=== PATIENT | female | born 2005 | race Hispanic/Latino ===

== ENCOUNTER 2023-04-27 20:00 | Emergency (ER) | payer OTHER, SELFPAY ==
[2023-04-27 20:10] VITALS: BP 138/71; PULSE 79; RESP 19; TEMP 37.1; O2SAT 100; BMI 26.6
[2023-04-27 20:19] VITALS: PULSE 81; O2SAT 99
--- NOTE | 2023-04-27 20:22 | ED_ITS ---
HPI - Nausea/Vomiting/Diarrhea General Chief complaint: Nausea/Vomiting/Diarrhea Stated complaint: 6wk preg, no fluids T-3, dizzy Time Seen by Provider: 04/27/23 20:03 Source: patient Mode of arrival: Family Vehicle History of Present Illness HPI Narrative: Patient is a 17-year-old female. at approximately 5-6 weeks EGA. Coming to the emergency department today because of nausea and vomiting. She denies any vaginal bleeding. No abdominal pain. No loss of fluid. No diarrhea. She is no nausea medication at home. She is taking vitamins. Yesterday she was seen at an outside facility for vaginal bleeding. She is not having any vaginal bleeding today. She states that they put in an IV but did not give her any fluids. They did not send her home with any nausea medication. Related Data Previous Rx's Medication Instructions Recorded ondansetron 4 mg disintegrating 4 mg PO Q6H PRN nausea and 04/27/23 tablet vomiting #14 tabs Allergies Allergy/AdvReac Type Severity Reaction Status Date / Time No Known Drug Allergies Allergy Verified 04/27/23 20:17 Review of Systems Constitutional Constitutional: Reports system reviewed and no additional complaints, except as documented Gastrointestinal Gastrointestinal: Reports system reviewed and no additional complaints, except as documented Genitourinary Genitourinary: Reports system reviewed and no additional complaints, except as documented Integumentary/Breasts Skin/Breast: Reports system reviewed and no additional complaints, except as documented Patient History Social History Smoking Status: Never smoker Smoking Status: Never smoker alcohol intake frequency: 0-2 drinks per day Substance Use Type: does not use Exam Initial Vital Signs Initial Vital Signs: Vital Signs Temperature 98.7 F 04/27/23 20:10 Pulse Rate 79 04/27/23 20:10 Respiratory Rate 19 04/27/23 20:10 Blood Pressure 138/71 04/27/23 20:10 Pulse Oximetry 100 04/27/23 20:10 Oxygen Delivery Method Room Air 04/27/23 20:10 Const General: cooperative and healthy appearing HENMT Head: normal to inspection and normocephalic Resp Effort & Inspection: normal respiratory effort Cardio Rate: regular rate GI Inspection: normal to inspection Skin General: no rashes or lesions noted Neuro General: patient alert, patient awake and moves all extremities Course Orders Ordered: Discontinued Medications Sodium Chloride (Normal Saline 0.9%) 1,000 mls @ 1,000 mls/hr IV BOLUS ONE Stop: 04/27/23 21:11 Last Infusion: 04/27/23 21:20 Dose: 0 mls/hr Documented By: Admin: 04/27/23 20:32 Dose: 1,000 mls/hr Documented By: CLINTON Ondansetron HCl (Ondansetron 4 Mg/2 Ml Inj) 4 mg IV NOW ONE Stop: 04/27/23 20:24 Last Admin: 04/27/23 20:32 Dose: 4 mg Documented By: CLINTON Ondansetron HCl (Ondansetron 4 Mg Odt Prepack) 1 bottle MISC SEEINSTR ONE Stop: 04/27/23 22:04 Pantoprazole Sodium (Pantoprazole 40 Mg Vial) 40 mg IV NOW ONE Stop: 04/27/23 21:12 Last Admin: 04/27/23 21:20 Dose: 40 mg Documented By: CLINTON Vital Signs Vital signs: Vital Signs - 8 hr 04/27/23 20:10 04/27/23 20:19 04/27/23 20:30 Temperature 98.7 F Pulse Rate 79 81 74 Respiratory Rate 19 Blood Pressure 138/71 Pulse Oximetry 100 99 99 Oxygen Delivery Method Room Air 04/27/23 21:00 04/27/23 21:30 04/27/23 21:52 Temperature Pulse Rate 95 H 92 H 81 Respiratory Rate Blood Pressure Pulse Oximetry 98 99 100 Oxygen Delivery Method 04/27/23 21:52 Temperature 97.8 F Pulse Rate Respiratory Rate 16 Blood Pressure 121/55 L Pulse Oximetry Oxygen Delivery Method MDM - Nausea/Vomiting/Diarrhea Medical Records Attestation: I reviewed the patient's medical records. Lab Data Lab results narrative: Patient had blood work and an ultrasound done yesterday. We were able to obtain those records. She did have a bedside ultrasound which did show a intrauterine gestational sac and a fetus consistent with a intrauterine . She is not having any vaginal bleeding today. After medications here in the ER she states she does feel much better. She is able to tolerate oral intake. I feel that we can hold on any blood work or repeat ultrasound today. Will send home with a prescription for nausea medicine. She is already taking vitamins. She already has a follow-up appointment scheduled with artifacts conservator. She was given return precautions. She expressed understanding and agreement. Discharge Plan Departure Patient Disposition: Home Clinical Impression: Nausea and vomiting during Instructions: Nausea of (Alternative Therapy) Activity Restrictions/Additional Instructions: I do recommend that you continue with your vitamins. Also increase your fluid intake by drinking small amounts more frequently. I also recommend a bland diet. Keep all of your scheduled medical appointments. Return to the emergency department for new or worsening symptoms. Prescriptions: New ondansetron 4 mg tablet,disintegrating 4 mg PO Q6H PRN (Reason: nausea and vomiting) Qty: 14 0RF Stand Alone Forms: Patient Portal/API
[2023-04-27 20:30] VITALS: PULSE 74; O2SAT 99
[2023-04-27] MEDS: ONDANSETRON 4 MG/2 ML INJ IV (20:32)
[2023-04-27] MEDS: SODIUM CHLORIDE 0.9% 1,000 ML 1000 ML IV (20:32)
[2023-04-27 21:00] VITALS: PULSE 95; O2SAT 98
[2023-04-27] MEDS: PANTOPRAZOLE 40 MG VIAL IV (21:20)
[2023-04-27 21:30] VITALS: PULSE 92; O2SAT 99
[2023-04-27 21:52] VITALS: BP 121/55; PULSE 81; RESP 16; TEMP 36.6; O2SAT 100
[2023-04-27] MEDS: ONDANSETRON 4 MG ODT PREPACK 1 BOTTLE MISC (22:17)
== END 2023-04-27 22:19 | disposition home or self-care (01) ==
PROVIDERS: Emergency Provider Emergency Medicine
DX: O21.9 Vomiting of pregnancy, unspecified (principal); Z3A.01 Less than 8 weeks gestation of pregnancy
CPT/HCPCS: 96361; 96374; 96375; 99283; 99284; C9113; J2405

== ENCOUNTER 2023-05-10 20:53 | Emergency (ER) | payer OTHER, MEDICAID, SELFPAY ==
[2023-05-10 20:58] VITALS: BP 120/87; PULSE 65; RESP 18; TEMP 36.3; O2SAT 100; BMI 25.2
[2023-05-11 00:03] LABS: Bacteria Urine Occasional (0-1); Calcium Oxalate Crystals Urine Moderate; RBC Urine 10-30/HPF (0-5/HPF); Squamous Epithelial Cell Urine 10-30 /HPF (0-5/HPF); WBC Urine 0-1/HPF (0-5/HPF)
[2023-05-11 00:04] LABS: Culture Indicated Urine Cult Not Indicated; Mucus Urine 2+ (Negative)
== END 2023-05-11 00:51 | disposition left against medical advice (07) ==
PROVIDERS: Emergency Provider Emergency Medicine
DX: O26.91 Pregnancy related conditions, unspecified, first trimester (principal); R10.30 Lower abdominal pain, unspecified; Z3A.01 Less than 8 weeks gestation of pregnancy
CPT/HCPCS: 81003; 81015; 81025; 99282

== ENCOUNTER 2023-05-11 05:52 | Emergency (ER) | payer OTHER, MEDICAID, SELFPAY ==
[2023-05-11 06:00] VITALS: BP 115/58; PULSE 86; RESP 18; TEMP 36.1; O2SAT 100; BMI 25.2
--- NOTE | 2023-05-11 06:12 | ED.GENADULT ---
HPI - General Adult <Corie Ferro MD - Last Filed: 05/20/23 18:23> General Chief complaint: Urogenital-Female Stated complaint: 8 weeks preg/cramping/cant sleep Time Seen by Provider: 05/11/23 06:12 Source: patient Mode of arrival: Wheelchair History of Present Illness HPI narrative: 17-year-old at approximately 8 weeks presents with dysuria. Patient was seen at [facility] ER on April 14 complaining of cramping and vaginal bleeding was found to be with a pelvic ultrasound showing a 2 mm cystic focus within the endometrial canal probably Re representing a small early gestation. She was seen again April 26 with vomiting of early , dehydration with mild dysuria and unremarkable urinalysis at that time. She was seen in our emergency department on April 27 with nausea and vomiting. She was in our emergency department approximately 8 hours ago, urine at that time showed blood epithelial cells and crystals but did not suggest acute urinary tract infection. She left prior to being seen in returns early this morning with continued complaints of dysuria. She notes that she has significant urgency and frequency minimal urine output, still nauseated and is now complaining of some cramping. She appears quite fatigued and notes almost no sleep secondary to the urgency and frequency. No fevers, flank pain, constipation or diarrhea. Related Data Previous Rx's Medication Instructions Recorded ondansetron 4 mg disintegrating 4 mg PO Q6H PRN nausea and 04/27/23 tablet vomiting #14 tabs ondansetron 4 mg disintegrating 4 mg PO Q8H PRN nausea and 05/11/23 tablet vomiting #10 tabs Allergies Allergy/AdvReac Type Severity Reaction Status Date / Time No Known Drug Allergies Allergy Verified 04/27/23 20:17 Review of Systems <Corie Ferro MD - Last Filed: 05/20/23 18:23> Review of Systems Narrative: Pertinent positive and negative findings as per HPI Patient History <Corie Ferro MD - Last Filed: 05/20/23 18:23> Social History Smoking Status: Never smoker Smoking Status: Never smoker alcohol intake frequency: 0-2 drinks per day Substance Use Type: does not use Exam <Corie Ferro MD - Last Filed: 05/20/23 18:23> Initial Vital Signs Initial Vital Signs: Vital Signs Temperature 97 F L 05/11/23 06:00 Pulse Rate 86 05/11/23 06:00 Respiratory Rate 18 05/11/23 06:00 Blood Pressure 115/58 L 05/11/23 06:00 Pulse Oximetry 100 05/11/23 06:00 Oxygen Delivery Method Room Air 05/11/23 06:00 General: Fatigued appears uncomfortable but still able to give a complete and coherent history. Well-nourished well-developed HEENT: Dry mucous membranes, normal sclera with reactive pupils, Respiratory: Lungs are clear to auscultation, no wheezing no rales no rhonchi. Full and symmetrical air movement Cardiac: Regular rate and rhythm no murmurs no bruits Abdomen: Soft, nontender, no rebound or guarding, no significant pelvic tenderness with palpation good bowel tones, no flank pain Skin: Warm and dry, no rashes Neurologic: Grossly neurologically intact with no obvious asymmetries or abnormalities Psych: Cooperative, appropriate insight and affect <Skylar Gutierres DO - Last Filed: 05/11/23 13:18> Initial Vital Signs Initial Vital Signs: Vital Signs Temperature 97 F L 05/11/23 06:00 Pulse Rate 86 05/11/23 06:00 Respiratory Rate 18 05/11/23 06:00 Blood Pressure 115/58 L 05/11/23 06:00 Pulse Oximetry 100 05/11/23 06:00 Oxygen Delivery Method Room Air 05/11/23 06:00 Course <Corie Ferro MD - Last Filed: 05/20/23 18:23> Orders Ordered: Discontinued Medications Sodium Chloride (Normal Saline 0.9%) 1,000 mls @ 1,000 mls/hr IV BOLUS ONE Stop: 05/11/23 07:23 Last Infusion: 05/11/23 07:50 Dose: 0 mls/hr Documented By: Admin: 05/11/23 06:42 Dose: 1,000 mls/hr Documented By: CHRISTOPHER Sodium Chloride (Normal Saline 0.9%) 1,000 mls @ 1,000 mls/hr IV BOLUS ONE Stop: 05/11/23 07:23 Last Infusion: 05/11/23 08:35 Dose: 0 mls/hr Documented By: Admin: 05/11/23 07:52 Dose: 1,000 mls/hr Documented By: RB Ondansetron HCl (Ondansetron 4 Mg/2 Ml Inj) 4 mg IV NOW ONE Stop: 05/11/23 06:25 Last Admin: 05/11/23 06:44 Dose: 4 mg Documented By: AP Vital Signs Vital signs: Vital Signs - 8 hr 05/11/23 06:00 05/11/23 07:47 05/11/23 07:47 Temperature 97 F L Pulse Rate 86 88 Respiratory Rate 18 Blood Pressure 115/58 L 96/52 L Pulse Oximetry 100 99 Oxygen Delivery Method Room Air <Skylar Gutierres DO - Last Filed: 05/11/23 13:18> Orders Ordered: Discontinued Medications Sodium Chloride (Normal Saline 0.9%) 1,000 mls @ 1,000 mls/hr IV BOLUS ONE Stop: 05/11/23 07:23 Last Infusion: 05/11/23 07:50 Dose: 0 mls/hr Documented By: Admin: 05/11/23 06:42 Dose: 1,000 mls/hr Documented By: AP Sodium Chloride (Normal Saline 0.9%) 1,000 mls @ 1,000 mls/hr IV BOLUS ONE Stop: 05/11/23 07:23 Last Infusion: 05/11/23 08:35 Dose: 0 mls/hr Documented By: Admin: 05/11/23 07:52 Dose: 1,000 mls/hr Documented By: RB Ondansetron HCl (Ondansetron 4 Mg/2 Ml Inj) 4 mg IV NOW ONE Stop: 05/11/23 06:25 Last Admin: 05/11/23 06:44 Dose: 4 mg Documented By: AP Vital Signs Vital signs: Vital Signs - 8 hr 05/11/23 06:00 05/11/23 07:47 05/11/23 07:47 Temperature 97 F L Pulse Rate 86 88 Respiratory Rate 18 Blood Pressure 115/58 L 96/52 L Pulse Oximetry 100 99 Oxygen Delivery Method Room Air Medical Decision Making <Corie Ferro MD - Last Filed: 05/20/23 18:23> Lab Data 05/11/23 06:30 05/11/23 06:30 Labs: Lab Results 05/11/23 05/11/23 05/11/23 Range/Units 06:30 06:30 06:50 WBC 9.6 (4.5-11.0) X10^3/uL RBC 4.25 (4.0-5.2) X10^6/uL Hgb 13.0 (12.0-16.0) g/dL Hct 37.3 (36-46) % MCV 87.8 (80-100) fL MCH 30.5 (26-34) PG MCHC 34.8 (30-36) % RDW 13.5 (11.6-14.8) % Plt Count 294 (150-400) X10^3/uL Neut % (Auto) 64.7 (50-75) % Lymph % (Auto) 28.2 (25-40) % [place] % (Auto) 6.1 (3-14) % Eos % (Auto) 0.6 L (2-4) % Baso % (Auto) 0.4 (0-2) % Neut # (Auto) 6200 (9248-8400) /uL Lymph # (Auto) 2700 (3132-4451) /uL [place] # (Auto) 600 (0-900) /uL Eos # (Auto) 100 (0-450) /uL Baso # (Auto) 0 (0-100) /uL Sodium 136 L (137-145) mmol/L Potassium 3.7 (3.4-5.1) mmol/L Chloride 106 (98-107) mmol/L Carbon Dioxide 21 L (22-32) mmol/L BUN 6 L (7-17) mg/dL Creatinine 0.39 L (0.52-1.04) mg/dL Estimated GFR > 60 (>60) mL/min BUN/Creatinine Ratio 15.4 (6-22) Glucose 84 (70-100) mg/dL Calcium 9.2 (8.4-10.2) mg/dL Total Bilirubin 0.3 (0.2-1.3) mg/dL AST 22 (14-36) IU/L ALT 16 (<35) IU/L Alkaline Phosphatase 45 (38-126) U/L Total Protein 6.8 (6.3-8.2) g/dL Albumin 4.0 (3.5-5.0) g/dL Globulin 2.8 (1.7-4.1) g/dL Albumin/Globulin Ratio 1.4 (1.0-2.8) Urine Color Yellow Urine Appearance Clear Urine pH 6.0 (4.5-8.0) Ur Specific [place] 1.015 (1.000-1.035) Urine Protein Negative (Negative) Urine Glucose (UA) Negative (Negative) g/dL Urine Ketones Trace H (NEGATIVE) Urine Occult Blood 1+ H (Negative) Urine Nitrate Negative (Negative) Urine Bilirubin Negative (NEGATIVE) Urine Urobilinogen 0.2 (0.2) E.U./dL Ur Leukocyte Esterase Negative (NEGATIVE) Urine RBC 1-5/hpf D (0-5/HPF) Urine WBC 1-5/hpf (0-5/HPF) Ur Squamous Epith Cells 5-10 /hpf H (0-5/HPF) Urine Bacteria Occasional (0-1) (None) Urine Mucus 1+ H (Negative) Ur Culture Indicated? Cult not indicated Micro UA Comment MDM Narrative Medical decision making narrative: CC: 8 weeks with dysuria, cramping, nausea and vomiting. Acute uncertain prognosis Complicating co-morbidities: Persistent nausea early Data collected from: patient, partner Medical records reviewed: Notes from April 14 at [facility] with ultrasound report and April 26 at [facility] with evaluation for dehydration are reviewed Differential considered: Urinary tract infection, dehydration causing urinary irritation, nausea and vomiting , complication Exam documented above, pertinent findings include: Fatigued, mild subjective cramping without any tenderness to deep palpation in the abdomen or lower pelvic area. No flank pain Lab Test results independently reviewed as above. Pertinent findings: Urine dip last night shows 10-30 red blood cells 10-30 squamous cells moderate calcium and mucus no bacteria and no white blood cells. Culture was not indicated. Independently reviewed EKG as above Imaging studies independently reviewed: Consultations: Treatments: Re-evaluations: Discussion: <Skylar Gutierres, DO - Last Filed: 05/11/23 13:18> Lab Data Labs: Lab Results 05/11/23 05/11/23 05/11/23 Range/Units 06:30 06:30 06:50 WBC 9.6 (4.5-11.0) X10^3/uL RBC 4.25 (4.0-5.2) X10^6/uL Hgb 13.0 (12.0-16.0) g/dL Hct 37.3 (36-46) % MCV 87.8 (80-100) fL MCH 30.5 (26-34) PG MCHC 34.8 (30-36) % RDW 13.5 (11.6-14.8) % Plt Count 294 (150-400) X10^3/uL Neut % (Auto) 64.7 (50-75) % Lymph % (Auto) 28.2 (25-40) % [place] % (Auto) 6.1 (3-14) % Eos % (Auto) 0.6 L (2-4) % Baso % (Auto) 0.4 (0-2) % Neut # (Auto) 6200 (9732-8633) /uL Lymph # (Auto) 2700 (0121-3829) /uL [place] # (Auto) 600 (0-900) /uL Eos # (Auto) 100 (0-450) /uL Baso # (Auto) 0 (0-100) /uL Sodium 136 L (137-145) mmol/L Potassium 3.7 (3.4-5.1) mmol/L Chloride 106 (98-107) mmol/L Carbon Dioxide 21 L (22-32) mmol/L BUN 6 L (7-17) mg/dL Creatinine 0.39 L (0.52-1.04) mg/dL Estimated GFR > 60 (>60) mL/min BUN/Creatinine Ratio 15.4 (6-22) Glucose 84 (70-100) mg/dL Calcium 9.2 (8.4-10.2) mg/dL Total Bilirubin 0.3 (0.2-1.3) mg/dL AST 22 (14-36) IU/L ALT 16 (<35) IU/L Alkaline Phosphatase 45 (38-126) U/L Total Protein 6.8 (6.3-8.2) g/dL Albumin 4.0 (3.5-5.0) g/dL Globulin 2.8 (1.7-4.1) g/dL Albumin/Globulin Ratio 1.4 (1.0-2.8) Urine Color Yellow Urine Appearance Clear Urine pH 6.0 (4.5-8.0) Ur Specific [place] 1.015 (1.000-1.035) Urine Protein Negative (Negative) Urine Glucose (UA) Negative (Negative) g/dL Urine Ketones Trace H (NEGATIVE) Urine Occult Blood 1+ H (Negative) Urine Nitrate Negative (Negative) Urine Bilirubin Negative (NEGATIVE) Urine Urobilinogen 0.2 (0.2) E.U./dL Ur Leukocyte Esterase Negative (NEGATIVE) Urine RBC 1-5/hpf D (0-5/HPF) Urine WBC 1-5/hpf (0-5/HPF) Ur Squamous Epith Cells 5-10 /hpf H (0-5/HPF) Urine Bacteria Occasional (0-1) (None) Urine Mucus 1+ H (Negative) Ur Culture Indicated? Cult not indicated Micro UA Comment MDM Narrative Medical decision making narrative: CC: 8 weeks with dysuria, cramping, nausea and vomiting. Acute uncertain prognosis Complicating co-morbidities: Persistent nausea early Data collected from: patient, partner Medical records reviewed: Notes from April 14 at [facility] with ultrasound report and April 26 at [facility] with evaluation for dehydration are reviewed Differential considered: Urinary tract infection, dehydration causing urinary irritation, nausea and vomiting , complication Exam documented above, pertinent findings include: Fatigued, mild subjective cramping without any tenderness to deep palpation in the abdomen or lower pelvic area. No flank pain Lab Test results independently reviewed as above. Pertinent findings: Urine dip last night shows 10-30 red blood cells 10-30 squamous cells moderate calcium and mucus no bacteria and no white blood cells. Culture was not indicated. Independently reviewed EKG as above Imaging studies independently reviewed: Consultations: Treatments: Re-evaluations: Discussion: Patient signed out to me by Dr. Ferro seen and evaluated patient myself. Overall feeling better ambulatory to the restroom. No evidence of UTI today. She is followed by Kate Newsome for OB care. She is tolerating fluids will give her more Zofran. She is an appointment with OB this week. We also discussed other options for nausea such as gianni and B6. Discharge Plan Departure Patient Disposition: Home Clinical Impression: Nausea and vomiting during Instructions: Nausea of (Alternative Therapy) Activity Restrictions/Additional Instructions: *You have been diagnosed with nausea vomiting in *What to do: Please stay hydrated as best you can try to eat small meals frequently preferably with high-protein *Continue to take medications as directed B6 once daily Zofran 4 mg every 8 hours if needed for nausea vomiting--> Derrick in [place] *Follow up with your primary care provider in 2-3 days or call [phone] Kate Newsome this week as scheduled *Return to ER if you should have persistent vomiting increased pain cramping or bleeding or any new, worsening or concerning symptoms Prescriptions: New ondansetron 4 mg tablet,disintegrating 4 mg PO Q8H PRN (Reason: nausea and vomiting) Qty: 10 0RF No Action ondansetron 4 mg tablet,disintegrating 4 mg PO Q6H PRN (Reason: nausea and vomiting) Qty: 14 0RF Referrals: Kate Leigh CNM [Advanced Clinical Nutritionist] - Stand Alone Forms: Patient Portal/API ED Sign-out <Corie Ferro MD - Last Filed: 05/20/23 18:23> Cosign ED Attending Cosmeredithature Attestation: I was immediately available in the department for consultation throughout this patient's visit. Corie Ferro MD
[2023-05-11] MEDS: SODIUM CHLORIDE 0.9% 1,000 ML 1000 ML IV ×2 (06:42→07:52)
[2023-05-11] MEDS: ONDANSETRON 4 MG/2 ML INJ IV (06:44)
[2023-05-11 06:50] LABS: Add Manual Diff / Slide Review NO; Basophils Absolute Auto 0 /uL (0-100); Basophils Percent Auto 0.4 % (0-2); Eosinophils Absolute Auto 100 /uL (0-450); Eosinophils Percent Auto 0.6 % (2-4); Hematocrit 37.3 % (36-46); Lymphocytes Absolute Auto 2700 /uL (1100-4500); Lymphocytes Percent Auto 28.2 % (25-40); Mean Corpuscular HGB Conc 34.8 % (30-36); Mean Corpuscular Hemoglobin 30.5 PG (26-34); Mean Corpuscular Volume 87.8 fL (80-100); Monocytes Absolute Auto 600 /uL (0-900); Monocytes Percent Auto 6.1 % (3-14); Neutrophils Absolute Auto 6200 /uL (1500-7000); Neutrophils Percent Auto 64.7 % (50-75); Platelet Count 294 X10^3/uL (150-400); Red Blood Cell Count 4.25 X10^6/uL (4.0-5.2); Red Cell Distribution Width 13.5 % (11.6-14.8); White Blood Cell Count 9.6 X10^3/uL (4.5-11.0)
[2023-05-11 06:58] LABS: Appearance Urine UA CLEAR; Bilirubin Urine UA NEGATIVE (NEGATIVE); Color Urine UA YELLOW; Glucose Urine UA NEGATIVE (Negative); Ketones Urine UA TRACE (NEGATIVE); Leukocyte Esterase Urine UA NEGATIVE (NEGATIVE); Nitrite Urine UA NEGATIVE (Negative); Occult Blood Urine UA 1+ (Negative); Protein Urine UA NEGATIVE (Negative); Specific Gravity Urine UA 1.015 (1.000-1.035); Urobilinogen Urine UA 0.2 E.U./dL (0.2)
[2023-05-11 07:00] LABS: Alanine Aminotransferase 16 IU/L (<35); Albumin Globulin Ratio 1.4 (1.0-2.8); Alkaline Phosphatase 45 U/L (38-126); Aspartate Aminotransferase 22 IU/L (14-36); BUN Creatinine Ratio 15.4 (6-22); Bilirubin Total 0.3 mg/dL (0.2-1.3); Blood Urea Nitrogen 6 mg/dL (7-17); Calcium 9.2 mg/dL (8.4-10.2); Carbon Dioxide 21 mmol/L (22-32); Chloride 106 mmol/L (98-107); Estimated Glomerular Filt Rate > 60 mL/min (>60); Globulin 2.8 g/dL (1.7-4.1); Glucose 84 mg/dL (70-100); HEMOLYSIS < 15 (0-50); Potassium 3.7 mmol/L (3.4-5.1); Sodium 136 mmol/L (137-145); Total Protein 6.8 g/dL (6.3-8.2)
[2023-05-11 07:11] LABS: Bacteria Urine Occasional (0-1); Culture Indicated Urine Cult Not Indicated; Mucus Urine 1+ (Negative); RBC Urine 1-5/HPF (0-5/HPF); Squamous Epithelial Cell Urine 5-10 /HPF (0-5/HPF); WBC Urine 1-5/HPF (0-5/HPF)
[2023-05-11 07:47] VITALS: BP 96/52; PULSE 88; O2SAT 99
== END 2023-05-11 08:37 | disposition home or self-care (01) ==
PROVIDERS: Emergency Medicine; Emergency Provider Emergency Medicine
DX: O21.9 Vomiting of pregnancy, unspecified (principal); Z3A.08 8 weeks gestation of pregnancy
CPT/HCPCS: 80053; 81001; 85025; 96361; 96374; 99283; 99284; J2405

== ENCOUNTER 2023-06-23 21:49 | Emergency (ER) | payer OTHER, MEDICAID, SELFPAY ==
[2023-06-23 21:58] VITALS: BP 111/65; PULSE 109; RESP 16; TEMP 37; O2SAT 99; BMI 27.0
--- NOTE | 2023-06-23 22:32 | ED.DENTAL ---
HPI - Dental/Oral General Chief complaint: Dental/Oral Stated complaint: Tooth Ache Time Seen by Provider: 06/23/23 22:28 Source: patient Mode of arrival: Ambulatory History of Present Illness HPI Narrative: Patient healthy 17-year-old female currently 14 weeks presenting today with dental pain for the last 2 days. She reports low-grade fever up to 100. Is left lower jaw. She reports pain going up to her ear no difficulty in swallowing. She denies any abdominal pain nausea vomiting or other symptoms. She denies any painful frequent urination. Really complaining of dental pain. Related Data Previous Rx's Medication Instructions Recorded ondansetron 4 mg disintegrating 4 mg PO Q6H PRN nausea and 04/27/23 tablet vomiting #14 tabs ondansetron 4 mg disintegrating 4 mg PO Q8H PRN nausea and 05/11/23 tablet vomiting #10 tabs amoxicillin 500 mg capsule 500 mg PO BID #14 caps 06/23/23 Allergies Allergy/AdvReac Type Severity Reaction Status Date / Time No Known Drug Allergies Allergy Verified 04/27/23 20:17 Review of Systems Review of Systems ROS Unobtainable: All systems reviewed & are unremarkable except as noted in HPI and below Patient History Social History Smoking Status: Never smoker Smoking Status: Never smoker alcohol intake frequency: 0-2 drinks per day Substance Use Type: does not use Exam Initial Vital Signs Initial Vital Signs: Vital Signs Temperature 98.6 F 06/23/23 21:58 Pulse Rate 109 H 06/23/23 21:58 Respiratory Rate 16 06/23/23 21:58 Blood Pressure 111/65 06/23/23 21:58 Pulse Oximetry 99 06/23/23 21:58 Oxygen Delivery Method Room Air 06/23/23 21:58 GENERAL: Well-appearing, well-nourished and in no acute distress. MOUTH: Pain left lower molar area no dental abscess no significant dental caries actually pretty good dentition no swelling no facial erythema CARDIOVASCULAR: peripheral pulses in tact, cap refill <2 sec RESPIRATORY: No respiratory distress, speaks in full sentences without difficulty EXTREMITIES: Normal range of motion, no clubbing or edema. Neurovascularly intact NEUROLOGICAL: Cranial nerves II through XII grossly intact. Normal gait and speech. SKIN: Warm, dry, no petechiae, no rashes or lesions. Course Orders Ordered: Discontinued Medications Amoxicillin (Amoxicillin 250 Mg Prepack) 1 bottle MISC SEEINSTR ONE Stop: 06/23/23 22:37 Last Admin: 06/23/23 22:47 Dose: 1 bottle Documented By: Vital Signs Vital signs: Vital Signs - 8 hr 06/23/23 21:58 06/23/23 22:48 Temperature 98.6 F Pulse Rate 109 H 103 H Respiratory Rate 16 16 Blood Pressure 111/65 107/69 Pulse Oximetry 99 100 Oxygen Delivery Method Room Air Room Air MDM - Dental/Oral MDM Narrative Medical decision making narrative: Patient is alert well-appearing 17-year-old female who presents today with fever although she is afebrile here and dental pain. She is previously had infections in the same area requiring antibiotics. No previous history of penicillin allergy. Denies any issue or complication with currently. Amoxicillin safe in . No evidence of Jaiden angina or deep neck infection. Discharge Plan Departure Patient Disposition: Home Clinical Impression: Toothache Instructions: DI for Dental Pain Activity Restrictions/Additional Instructions: *You have been diagnosed with dental pain *What to do: At this time please follow-up with a dentist. *Continue to take medications as directed Tylenol 1000 mg every 6 hours if needed [id number] pain Amoxicillin 500 mg twice a day for 7 days Avoid ibuprofen/NSAIDs/naproxen/Advil/Aleve etc *Follow up with your primary care provider in 2-3 days or call [phone] *Return to ER if you should have increasing facial swelling difficulty swallowing redness or any new, worsening or concerning symptoms Prescriptions: New amoxicillin 500 mg capsule 500 mg PO BID Qty: 14 0RF No Action ondansetron 4 mg tablet,disintegrating 4 mg PO Q6H PRN (Reason: nausea and vomiting) Qty: 14 0RF ondansetron 4 mg tablet,disintegrating 4 mg PO Q8H PRN (Reason: nausea and vomiting) Qty: 10 0RF Stand Alone Forms: Patient Portal/API
[2023-06-23] MEDS: AMOXICILLIN 250 MG PREPACK 1 BOTTLE MISC (22:47)
[2023-06-23 22:48] VITALS: BP 107/69; PULSE 103; RESP 16; O2SAT 100
== END 2023-06-23 22:49 | disposition home or self-care (01) ==
PROVIDERS: Emergency Provider Emergency Medicine
DX: K08.89 Other specified disorders of teeth and supporting structures (principal); R50.9 Fever, unspecified; Z3A.14 14 weeks gestation of pregnancy
CPT/HCPCS: 99281; 99283

== ENCOUNTER 2023-06-26 19:56 | Emergency (ER) | payer OTHER, MEDICAID, SELFPAY ==
[2023-06-26] VITALS (10 sets, daily range): BP systolic 99–135; BP diastolic 63–80; PULSE 95–108; RESP 16–18; TEMP 36.8; O2SAT 96–100; BMI 27.1
[2023-06-26 21:37] LABS: Add Manual Diff / Slide Review NO; Basophils Absolute Auto 0 /uL (0-100); Basophils Percent Auto 0.2 % (0-2); Eosinophils Absolute Auto 100 /uL (0-450); Eosinophils Percent Auto 0.9 % (2-4); Hematocrit 33.4 % (36-46); Hemoglobin 11.7 g/dL (12.0-16.0); Lymphocytes Absolute Auto 2600 /uL (1100-4500); Lymphocytes Percent Auto 25.4 % (25-40); Mean Corpuscular HGB Conc 34.9 % (30-36); Mean Corpuscular Hemoglobin 30.9 PG (26-34); Mean Corpuscular Volume 88.6 fL (80-100); Monocytes Absolute Auto 700 /uL (0-900); Neutrophils Absolute Auto 6900 /uL (1500-7000); Neutrophils Percent Auto 66.5 % (50-75); Platelet Count 322 X10^3/uL (150-400); Red Blood Cell Count 3.77 X10^6/uL (4.0-5.2); Red Cell Distribution Width 13.3 % (11.6-14.8); White Blood Cell Count 10.4 X10^3/uL (4.5-11.0)
[2023-06-26 21:43] LABS: Lactate (Lactic Acid) 1.1 mmol/L (0.7-2.1)
[2023-06-26 21:44] LABS: Alanine Aminotransferase 23 IU/L (<35); Albumin 3.9 g/dL (3.5-5.0); Albumin Globulin Ratio 1.1 (1.0-2.8); Alkaline Phosphatase 48 U/L (38-126); Aspartate Aminotransferase 45 IU/L (14-36); BUN Creatinine Ratio 16.3 (6-22); Bilirubin Total 0.3 mg/dL (0.2-1.3); Blood Urea Nitrogen 8 mg/dL (7-17); Calcium 8.9 mg/dL (8.4-10.2); Carbon Dioxide 23 mmol/L (22-32); Chloride 104 mmol/L (98-107); Estimated Glomerular Filt Rate > 60 mL/min (>60); Globulin 3.4 g/dL (1.7-4.1); Glucose 91 mg/dL (70-100); HEMOLYSIS 35 (0-50); Potassium 3.8 mmol/L (3.4-5.1); Sodium 134 mmol/L (137-145); Total Protein 7.3 g/dL (6.3-8.2)
[2023-06-26 22:01] LABS: Procalcitonin 0.12 ng/mL (<0.5)
--- NOTE | 2023-06-26 22:05 | ED_ITS ---
HPI - Dental/Oral General Chief complaint: Dental/Oral Stated complaint: facial numbness, ear ringing, migraine, throat swe Time Seen by Provider: 06/26/23 22:04 Source: patient Mode of arrival: Ambulatory History of Present Illness HPI Narrative: Patient is a 17-year-old female currently 14 weeks presenting for the 2nd time this week with dental pain. She initially was seen and evaluated by myself started on amoxicillin. 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 She states that the fever is better but now she is having some radiating pain up into her left ear which is the side that the tooth is hurting on. She is some mild throat pain. She is staying hydrated. She denies any abdominal pain vaginal bleeding or any other symptoms. She has no cough or shortness of breath. She denies any tongue swelling lip swelling no difficulty swallowing. Related Data Previous Rx's Medication Instructions Recorded ondansetron 4 mg disintegrating 4 mg PO Q6H PRN nausea and 04/27/23 tablet vomiting #14 tabs ondansetron 4 mg disintegrating 4 mg PO Q8H PRN nausea and 05/11/23 tablet vomiting #10 tabs amoxicillin 500 mg capsule 500 mg PO BID #14 caps 06/23/23 Allergies Allergy/AdvReac Type Severity Reaction Status Date / Time No Known Drug Allergies Allergy Verified 04/27/23 20:17 Review of Systems Review of Systems ROS Unobtainable: All systems reviewed & are unremarkable except as noted in HPI and below Patient History Social History Smoking Status: Never smoker Smoking Status: Never smoker alcohol intake frequency: 0-2 drinks per day Substance Use Type: does not use Exam Initial Vital Signs Initial Vital Signs: Vital Signs Pulse Oximetry 96 06/26/23 20:04 GENERAL: Alert well-appearing 17-year-old female HEENT: Head atraumatic,EOMI, pupils reactive, face symmetric, moist mucous membranes MOUTH: No dental abscess no trismus no significant swelling no uvula swelling or deviation no tonsillar exudate no cervical lymphadenopathy or stridor CARDIOVASCULAR: Regular rate and rhythm without murmurs, rubs or gallops. RESPIRATORY: Breath sounds equal bilaterally, no wheezes rales or rhonchi. ABDOMEN: Soft, nontender. Normoactive bowel sounds all 4 quadrants. No guarding or rebound. EXTREMITIES: Normal range of motion, no clubbing or edema. Neurovascularly intact NEUROLOGICAL: Alert and oriented x4. SKIN: Warm, dry, no laceration, no petechiae, no rashes or lesions. Course Orders Ordered: ED Orders 06/26/23 21:15 Complete Blood Count AUTO DIFF Stat Comprehensive Metabolic Panel Stat Lactate (Lactic Acid) Stat Procalcitonin Stat Vital Signs Vital signs: Vital Signs - 8 hr 06/26/23 20:08 06/26/23 20:04 06/26/23 20:05 Temperature 98.2 F Pulse Rate 102 H Respiratory Rate 16 Blood Pressure 134/80 134/80 Pulse Oximetry 98 96 Oxygen Delivery Method Room Air 06/26/23 20:05 06/26/23 20:30 06/26/23 20:30 Temperature Pulse Rate 108 H 107 H Respiratory Rate Blood Pressure 135/79 Pulse Oximetry 98 99 Oxygen Delivery Method 06/26/23 21:00 06/26/23 21:00 06/26/23 21:30 Temperature Pulse Rate 99 H Respiratory Rate Blood Pressure 122/80 105/63 Pulse Oximetry 98 Oxygen Delivery Method 06/26/23 21:30 06/26/23 22:00 06/26/23 22:00 Temperature Pulse Rate 98 H 98 H Respiratory Rate 16 16 Blood Pressure 99/67 Pulse Oximetry 99 98 Oxygen Delivery Method 06/26/23 22:23 06/26/23 22:24 06/26/23 22:27 Temperature Pulse Rate 95 H Respiratory Rate 18 16 Blood Pressure 102/68 102/68 Pulse Oximetry 99 100 Oxygen Delivery Method Room Air MDM - Dental/Oral Lab Data 06/26/23 21:15 06/26/23 21:15 Labs: Lab Results 06/26/23 06/26/23 06/26/23 Range/Units 21:15 21:15 21:15 WBC 10.4 (4.5-11.0) X10^3/uL RBC 3.77 L (4.0-5.2) X10^6/uL Hgb 11.7 L (12.0-16.0) g/dL Hct 33.4 L (36-46) % MCV 88.6 (80-100) fL MCH 30.9 (26-34) PG MCHC 34.9 (30-36) % RDW 13.3 (11.6-14.8) % Plt Count 322 (150-400) X10^3/uL Neut % (Auto) 66.5 (50-75) % Lymph % (Auto) 25.4 (25-40) % [place] % (Auto) 7.0 (3-14) % Eos % (Auto) 0.9 L (2-4) % Baso % (Auto) 0.2 (0-2) % Neut # (Auto) 6900 (1738-5191) /uL Lymph # (Auto) 2600 (4217-2242) /uL [facility] # (Auto) 700 (0-900) /uL Eos # (Auto) 100 (0-450) /uL Baso # (Auto) 0 (0-100) /uL Sodium 134 L (137-145) mmol/L Potassium 3.8 (3.4-5.1) mmol/L Chloride 104 (98-107) mmol/L Carbon Dioxide 23 (22-32) mmol/L BUN 8 (7-17) mg/dL Creatinine 0.49 L (0.52-1.04) mg/dL Estimated GFR > 60 (>60) mL/min BUN/Creatinine Ratio 16.3 (6-22) Glucose 91 (70-100) mg/dL Lactate 1.1 (0.7-2.1) mmol/L Calcium 8.9 (8.4-10.2) mg/dL Total Bilirubin 0.3 (0.2-1.3) mg/dL AST 45 H (14-36) IU/L ALT 23 (<35) IU/L Alkaline Phosphatase 48 (38-126) U/L Total Protein 7.3 (6.3-8.2) g/dL Albumin 3.9 (3.5-5.0) g/dL Globulin 3.4 (1.7-4.1) g/dL Albumin/Globulin Ratio 1.1 (1.0-2.8) Procalcitonin 0.12 (<0.5) ng/mL Urine Dip Bedside Urine Glucose Negative Bedside Urine Bilirubin - Negative Bedside Urine Ketone - Negative Urine Specific [place] 1.005 Bedside Urine Occult Blood - Negative Bedside Urine pH 7.5 Bedside Urine Protein - Negative Bedside Urine Urobilinogen - Negative Bedside Urine Nitrite - Negative Bedside Urine Leukocytes - Negative Esterase MDM Narrative Medical decision making narrative: Patient is a 17-year-old female presenting for the 2nd time with ongoing dental pain. She was put on amoxicillin she has no evidence of dental abscess. She is no facial swelling no sign of otitis media no sign of strep no uvula swelling or deviation. Blood work has been reviewed and overall reassuring. She is no leukocytosis or electrolyte abnormality. She overall appears well she is no abdominal pain or vaginal bleeding. She reports some ringing in her ear this is probably related to her current dental infection but overall appears well. No evidence of it deep neck soft tissue infection or Jaiden's. Discharge Plan Departure Patient Disposition: Home Clinical Impression: Earache on left, Pain, dental Instructions: DI for Dental Pain, DI for Ear Pain-Adult Activity Restrictions/Additional Instructions: *You have been diagnosed with your pain, dental pain *What to do: At this time please finish your antibiotics stay hydrated. You may be having some ear pain related to your tooth pain. He may also have beginnings a virus. Stay hydrated. *Continue to take medications as directed Finish antibiotics Amoxicillin 1000 mg every 6 hours *Follow up with your primary care provider in 2-3 days or call [phone] *Return to ER if you should have increasing facial swelling pain fever or any new, worsening or concerning symptoms Prescriptions: No Action ondansetron 4 mg tablet,disintegrating 4 mg PO Q6H PRN (Reason: nausea and vomiting) Qty: 14 0RF amoxicillin 500 mg capsule 500 mg PO BID Qty: 14 0RF ondansetron 4 mg tablet,disintegrating 4 mg PO Q8H PRN (Reason: nausea and vomiting) Qty: 10 0RF Referrals: Sherman Adair DO [Primary Care Provider] - Stand Alone Forms: Patient Portal/API
== END 2023-06-26 22:28 | disposition home or self-care (01) ==
PROVIDERS: Emergency Provider Emergency Medicine; PCP Family Medicine
DX: H92.02 Otalgia, left ear (principal); K08.89 Other specified disorders of teeth and supporting structures
CPT/HCPCS: 36415; 80053; 81003; 83605; 84145; 85025; 99283

== ENCOUNTER 2023-08-31 23:08 | Emergency (ER) | payer OTHER, MEDICAID, SELFPAY ==
[2023-08-31 23:27] VITALS: BP 114/55; PULSE 86; RESP 16; TEMP 36.2; O2SAT 99; BMI 28.1
== END 2023-09-01 02:14 | disposition left against medical advice (07) ==
PROVIDERS: Emergency Provider Emergency Medicine; PCP Family Medicine
DX: N89.8 Other specified noninflammatory disorders of vagina (principal)
CPT/HCPCS: 81003; 87210; 87220; 99282

== ENCOUNTER 2023-09-03 12:08 | Outpatient (CLI) | payer OTHER, MEDICAID, SELFPAY ==
[2023-09-03 12:56] LABS: Appearance Urine UA CLEAR; Bilirubin Urine UA NEGATIVE (NEGATIVE); Color Urine UA YELLOW; Glucose Urine UA NEGATIVE (Negative); Ketones Urine UA NEGATIVE (NEGATIVE); Leukocyte Esterase Urine UA NEGATIVE (NEGATIVE); Nitrite Urine UA NEGATIVE (Negative); Occult Blood Urine UA NEGATIVE (Negative); Protein Urine UA NEGATIVE (Negative); Specific Gravity Urine UA 1.015 (1.000-1.035); Urobilinogen Urine UA 0.2 E.U./dL (0.2)
[2023-09-03 13:25] LABS: Bacteria Urine Occasional (0-1); Culture Indicated Urine Cult Not Indicated; RBC Urine 0-1/HPF (0-5/HPF); Squamous Epithelial Cell Urine None Seen (0-5/HPF); WBC Urine None Seen (0-5/HPF)
--- NOTE | 2023-09-03 13:29 | P.TNLD_ITS ---
Visit Information Visit Information Date of evaluation: 09/03/23 Primary OB Provider: Litzy Lay On-call OB Provider: Kate Leigh Reason for Evaluation: Yes other Comments/Additional reasons for admission: 18YO @ 24wks 6 days here for evaluation of vaginal itching x 1 week. Feels like her vagina is really dry. no concern for STI. No vaginal bleeding or leaking of fluid. no abnormal vaginal discharge. Vaginal itching improves with use of coconut oil. +FM. Vital Signs Vital Signs: BP 109/58, HR 92bpm, T 97.5F Temporal PFSH Social History Smoking Status: Never smoker Review of Systems Review of Systems ROS: Yes All systems reviewed with the patient and are negative except as otherwise documented Exam Vital Signs (past 8 hours): see above Objective Labs Labs: Laboratory Results - last 24 hr 09/03/23 12:30 Urine Color Yellow Urine Appearance Clear Urine pH 7.0 Ur Specific [place] 1.015 Urine Protein Negative Urine Glucose (UA) Negative Urine Ketones Negative Urine Occult Blood Negative Urine Nitrate Negative Urine Bilirubin Negative Urine Urobilinogen 0.2 Ur Leukocyte Esterase Negative Urine RBC 0-1/hpf Urine WBC None seen Ur Squamous Epith Cells None seen Urine Bacteria Occasional (0-1) Ur Culture Indicated? Cult not indicated Evaluation Evaluation Baseline heart rate: 142 Diagnosis, Plan/Disposition Final Diagnosis (1) Other specified noninflammatory disorders of vagina: Status: Acute Plan/Disposition Plan: No concern for infection. Continue vaginal moisturizer. Follow-up in clinic tomorrow as previously scheduled. OB Disposition: home
== END 2023-09-03 13:31 | disposition home or self-care (01) ==
LOC: OB 09-06 13:51
PROVIDERS: Nurse Practitioner Obstetrics & Gynecology; PCP Family Medicine; Referring Provider Advanced Practice Midwife; Visit Provider Advanced Practice Midwife
DX: O26.892 Other specified pregnancy related conditions, second trimester (principal); N89.8 Other specified noninflammatory disorders of vagina; Z3A.24 24 weeks gestation of pregnancy
CPT/HCPCS: 59025; 81001; 87210; G0378; G0379

== ENCOUNTER 2023-10-24 01:03 | Outpatient (CLI) | payer OTHER, MEDICAID, SELFPAY ==
--- NOTE | 2023-10-30 20:09 | PM.OBTRLD ---
Visit Information Visit Information Date of evaluation: 10/24/23 Primary OB Provider: Litzy Lay On-call OB Provider: Litzy Lay Reason for Evaluation: Yes non-stress test Comments/Additional reasons for admission: Yvette hit her abdomen on a door knob and has abdominal pain so came to triage to check on baby. Worried there was trauma. Having lots of pain that is slowly improving with time. Relieved to know her baby is okay. No other complaints. Vital Signs Vital Signs: BP: 99/68 T: 36.4 C, temporal P: 118bpm [facility] Social History Smoking Status: Never smoker Review of Systems Review of Systems Narrative: All negative except as stated in HPI. 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
== END 2023-10-24 02:10 | disposition home or self-care (01) ==
LOC: LABOR 01:06 → OB 10-28 14:09
PROVIDERS: PCP Family Medicine; Referring Provider Advanced Practice Midwife; Visit Provider Advanced Practice Midwife
DX: O26.893 Other specified pregnancy related conditions, third trimester (principal); R10.12 Left upper quadrant pain; Z3A.32 32 weeks gestation of pregnancy
CPT/HCPCS: 59025; G0378; G0379

== ENCOUNTER 2023-12-31 19:52 | Inpatient (IN) | payer OTHER, MEDICAID, SELFPAY ==
--- NOTE | 2023-12-31 20:02 | PM.OBHP.1 ---
OB HPI Date/Time Date of admission: 12/31/23 Date Patient Seen: 12/31/23 Time Patient Seen: 20:02 History of Present Condition Chief complaint: Induction : 1 Para: 0 Estimated Date of Delivery: 12/24/23 Estimated Gestational Age (weeks): 41 Narrative: Yvette Murcia is a 18 year old female @ 41wks by 8wk US presents for IOL for oligohydramnios diagnosed at routine 41wk post dates testing. +FM. No vaginal bleeding or leaking of fluid. Uncomplicated care with CNMs. CE in clinic was 1/5cm/80%/-2, medium, posterior this afternoon with membranes swept. [place] some cramping after, but nothing regular. Accompanied by her mother and her supportive partner, Tima. Planning epidural. Indications Indication for induction OB: oligohydramnios History of Present care: good care, initiated at week # (14), number of visits (15) and pounds weight gain (48) Dating criteria: based on 1st trimester US only Ultrasounds: normal mid trimester US Obstetrical complications: none Medical complications: none Preadmission Labs Blood type: O (+) positive -: Antibody screen: negative, GBS status: positive, HBsAG: negative, HIV: negative and RPR/VDLR: negative -: Chlamydia screen: not detected and Gonorrhea screen: not detected -: Rubella: immune and Varicella: immune HCT: 33 HCAB: negative 1 hr GTT: 76 Evaluation Evaluation Baseline heart rate: 160 Variability: Moderate (11-25) monitor accelerations: Present Monitor Decelerations: Absent Contraction Frequency (minutes): 0 Uterine Contraction Intensity: Mild Dilation (cm): 1.5 Effacement (%): 80 Dilation: 1-2 cm Effacement: >/=80% station: -2 Position of cervix: posterior Consistency: medium Morfin score: 6 PFSH Social History Smoking Status: Never smoker Meds Home Medications and Allergies Allergies Allergy/AdvReac Type Severity Reaction Status Date / Time No Known Drug Allergies Allergy Verified 04/27/23 20:17 Review of Systems Review of Systems ROS: Yes All systems reviewed with the patient and are negative except as otherwise documented OB Exam Vital signs Blood Pressure: 123/68 Pulse Rate: 125 Temperature: 97.7 F Resp Effort & Inspection: normal respiratory effort and able to speak in complete sentences Auscultation: clear to auscultation bilaterally Cardio Rate: regular rate Rhythm: regular rhythm Presentation: vertex Objective Labs 12/31/23 20:50 Assessment and Plan Assessment and Plan Assessment and Plan narrative: A: Late term nullipara IOL for oligohydramnios GBS prophylaxis indicated Maternal & tachycardia Cat II FHR P: Admit, routine orders. 500mL LR IVFS. Informed consent obtained for IOL. Fuentes balloon inserted and inflated with 60mL NS. Will continue to monitor heartrates closely and consult OB as indicated. Reassess in 4 hours or sooner, PRN.
[2023-12-31 20:50] VITALS: BP 123/68; PULSE 125; TEMP 36.5
[2023-12-31 20:57] LABS: Add Manual Diff / Slide Review NO; Basophils Absolute Auto 100 /uL (0-100); Basophils Percent Auto 0.8 % (0-2); Eosinophils Absolute Auto 0 /uL (0-450); Eosinophils Percent Auto 0.1 % (2-4); Hematocrit 30.4 % (36-46); Hemoglobin 9.4 g/dL (12.0-16.0); Lymphocytes Absolute Auto 2100 /uL (1100-4500); Lymphocytes Percent Auto 15.6 % (25-40); Mean Corpuscular Hemoglobin 21.4 PG (26-34); Monocytes Absolute Auto 800 /uL (0-900); Monocytes Percent Auto 5.7 % (3-14); Neutrophils Absolute Auto 10300 /uL (1500-7000); Neutrophils Percent Auto 77.8 % (50-75); Platelet Count 397 X10^3/uL (150-400); Red Cell Distribution Width 20.7 % (11.6-14.8); White Blood Cell Count 13.3 X10^3/uL (4.5-11.0)
[2023-12-31] MEDS: LACTATED RINGERS 1,000 ML 100 ML IV (21:05)
[2023-12-31 21:18] LABS: Anisocytosis 1+; Microcytosis 2+; Platelet Estimate Adequate on smear
[2023-12-31 21:27] VITALS: BP 123/68
--- NOTE | 2023-12-31 22:56 | PM.OBPNLAB ---
Date/Time Date Patient Seen: 12/31/23 Time Patient Seen: 22:56 Pain Control Pain control: tolerating well Comments: Feeling regular, uncomfortable contractions and lots of pressure. Coping well. Sun balloon still in place. VS not repeated since admission. Pelvic Exam Dilation (cm): 2.5 Effacement (%): 90 station: -2 Amniotic membrane status: Intact Contractions Contraction intensity: Mild Status status: Category l Heart Rate Baseline: 155 Monitor Accelerations: Present Monitor Decelerations: Absent Assessment and Plan Assessment: induction ongoing Plan: continuous present management Comments: Maternal and tachycardia have resolved. Oral miso w/ sun now. Reassess in 4 hours or sooner, PRN.
[2023-12-31] MEDS: fentaNYL 100 MCG/2 ML INJ IV (23:15)
[2023-12-31] MEDS: miSOPROStoL 25 MCG TABLET 50 MCG SL (23:57)
[2024-01-01] VITALS (8 sets, daily range): BP systolic 106–110; BP diastolic 67–72; PULSE 91–105; RESP 12–14; TEMP 36.4–36.9; O2SAT 96–97
[2024-01-01] MEDS: fentaNYL 100 MCG/2 ML INJ IV ×3 (00:27→02:28)
--- NOTE | 2024-01-01 04:11 | PM.AN.REGBLK ---
Regional Block Pre-procedure Procedure: Continuous Lumbar Epidural for L&D Attending OB provider: Kate Leigh PMH/ROS narrative: 18yo female at 40w1d induced for oligohydramnios in labor requesting epidural. See pre-anesthesia assessment for more details. ASA Class: II Labs: Hct 30.4 % (36-46) L 12/31/23 20:50 Plt Count 397 X10^3/uL (150-400) 12/31/23 20:50 Medications: Current Medications Generic Name Dose Route Start Last Admin Trade Name Freq PRN Reason Stop Dose Admin Calcium Carbonate 1,000 mg 12/31/23 19:58 Calcium Carbonate 500 Mg Tab PO Q4HR PRN Dyspepsia Carboprost Tromethamine 250 mcg 12/31/23 19:58 Carboprost 250 Mcg/Ml Ampul IM Q90M PRN Bleeding Diphenhydramine HCl 25 mg 01/01/24 04:08 Diphenhydramine 50 Mg/Ml Vial IV Q10M PRN Pruritis Ephedrine Sulfate 10 mg 01/01/24 04:08 Ephedrine 50 Mg/Ml Vial IV Q5M PRN Blood pressure decrease more than 20% of baseline. Fentanyl 100 mcg 12/31/23 19:58 01/01/24 02:28 Fentanyl 100 Mcg/2 Ml Inj IV 50 mcg Q1H PRN Administration Pain, Severe (7-10) Oxytocin/Lactated Ringer's 30 unit in 500 mls @ 200 mls/hr 12/31/23 19:58 Oxytocin Premix IV CONT PRN Bleeding Protocol Tranexamic Acid 1,000 mg/ 100 mls @ 200 mls/hr 12/31/23 19:58 Sodium Chloride IV NOW PRN Bleeding Oxytocin/Lactated Ringer's 30 unit in 500 mls @ 2 mls/hr 12/31/23 20:00 Oxytocin Premix IV TITRATE JUANITA Protocol 2 MILLIUNIT/MIN Lactated Ringer's 1,000 mls @ 100 mls/hr 12/31/23 20:00 Lactated Ringers IV CONT JUANITA FENT 2MCG/ML BUPIV 0.125% EPI 200 mcg in 100 mls @ 6 mls/hr 01/01/24 04:15 Fentanyl/Bupiv/Ns 2mcg/Ml - 0.125% EPIDURAL CONT JUANITA Lidocaine HCl 20 ml 12/31/23 19:58 Lidocaine 1% 20 Ml INJ INTRA-OP PRN Post Delivery Methylergonovine Maleate 0.2 mg 12/31/23 19:58 Methylergonovine 0.2 Mg Tablet PO Q6HR PRN Heavy Bleeding Methylergonovine Maleate 0.2 mg 12/31/23 19:58 Methylergonovine 0.2 Mg/Ml Vial IM NOW PRN Bleeding Misoprostol 800 mcg 12/31/23 19:58 Misoprostol 200 Mcg Tablet AK NOW PRN Bleeding Misoprostol 400 mcg 12/31/23 19:58 Misoprostol 200 Mcg Tablet SL NOW PRN Bleeding Misoprostol 50 mcg 12/31/23 20:00 12/31/23 23:57 Misoprostol 25 Mcg Tablet SL 50 mcg Q4H JUANITA Administration Nalbuphine HCl 2.5 mg 01/01/24 04:08 Nalbuphine 20 Mg/Ml Ampul IV Q10M PRN Pruritis Naloxone HCl 0.2 mg 12/31/23 19:58 Naloxone 0.4 Mg/Ml Vial IV Q2MIN PRN Opiate Reversal Ondansetron HCl 4 mg 12/31/23 19:58 Ondansetron 4 Mg/2 Ml Inj IV Q4HR PRN Nausea And Vomiting Oxytocin 10 unit 12/31/23 19:58 Oxytocin 10 Unit/Ml Vial IM NOW PRN Bleeding Allergies: Allergies Allergy/AdvReac Type Severity Reaction Status Date / Time No Known Drug Allergies Allergy Verified 04/27/23 20:17 Procedure Insertion date: 01/01/24 Insertion time: 03:48 Prep/Local: 1% lidocaine (Chloraprep) Interspace: L4-5 Patient position: sitting Needle: 18 gauge Macrina Loss of resistance with: saline CHRISTI at (cm): 6 Catheter placed at SKIN (cm): 14 Catheter in SPACE (cm): 8 Insertion: No CSF, No Blood, Yes Paresthesia with insertion, No Paresthesia with injection and No Test dose reaction Initial Medications TEST DOSE time: 03:49 TEST DOSE: 1.5% lidocaine with epinephrine 1:200k (mL): 3 BOLUS DOSE time: 03:50 BOLUS DOSE (mL): 2 BOLUS DOSE med: other (Same) Infusion INFUSION: 0.125% bupivacaine and with fentanyl 2 mcg/mL Initial rate (mL/hr): 8 Subsequent interventions: 04:04 Catheter infusion started. Pt reports she is much more comfortable, pain from 8-9/10 down to 2/10. BLE N/T with RLE more numb. Pt required urgent later same day. See anesthesia record for more details. KR Post-procedure Anesthesia date START: 01/01/24 Anesthesia time START: 03:38 Anesthesia date END: 01/01/24 Anesthesia time END: 14:43 Post-procedure Anesthesia Assessment: Yes CV function: HR/BP stable, Yes Resp function: RR/sat/airway adequate, Yes Post-op hydration adequate, Yes Pain control adequate, Yes Nausea & vomiting absent, Yes Temperature > 36 C, Yes Mental status appropriate and No Anesthesia complications
[2024-01-01] MEDS: AMPICILLIN 2,000 MG in SODIUM CHLORIDE 0.9% 100 ML 200 MG IV (04:20)
[2024-01-01] MEDS: OXYTOCIN PREMIX 30 UNIT/500 ML PLAST..BAG IV (04:40)
[2024-01-01] MEDS: LACTATED RINGERS 1,000 ML 100 ML IV ×2 (04:40→10:14)
--- NOTE | 2024-01-01 05:05 | PM.OBPNLAB ---
Date/Time Date Patient Seen: 01/01/24 Time Patient Seen: 03:15 Pain Control Pain control: tolerating well Comments: Coping well with regular, intense contractions with use of IV Fentanyl. Requesting epidural once the sun balloon comes out. Partner and mother remain supportive at her side. VS: BP 116/70, HR 104, T 36.4C Temporal Pelvic Exam Dilation (cm): 5 Effacement (%): 90 station: -2 Amniotic membrane status: Intact Comments: Sun balloon easily removed from vagina prior to CE Contractions Monitor mode: External Contraction frequency (min): 5 Contraction duration (min): 1 Contraction intensity: Moderate Status status: Category l Heart Rate Baseline: 135 Monitor Accelerations: Present Monitor Decelerations: Variable Monitor Variability: Moderate Comments: periods of minimal variability with IV fentanyl dosing. Assessment and Plan Assessment: active labor Plan: begin patient augmentation Comments: Epidural AUBREE. Begin GBS prophylaxis and pitocin augmentation. Reassess in 4 hours or sooner, PRN.
--- NOTE | 2024-01-01 06:03 | PM.OBPNLAB ---
Date/Time Date Patient Seen: 01/01/24 Time Patient Seen: 06:04 Pain Control Pain control: epidural Pelvic Exam Dilation (cm): 6 Effacement (%): 90 station: -2 Amniotic membrane status: Ruptured (AROM) Comments: light meconium Contractions Monitor mode: External Pitocin rate (mU/min): 4 Contraction frequency (min): 2 Contraction duration (min): 1 Contraction intensity: Moderate Status status: Category ll Heart Rate Baseline: 150 Monitor Accelerations: Present Monitor Decelerations: Late (not recurrent) and Variable Monitor Variability: Moderate Assessment and Plan Assessment: active labor Plan: continuous present management Comments: Continue pitocin augmentation as able. RT at the . Reassess in 4 hours or sooner, PRN.
[2024-01-01] MEDS: AMPICILLIN 1,000 MG in SODIUM CHLORIDE 0.9% 100 ML 200 MG IV ×2 (09:03→12:57)
[2024-01-01] MEDS: FENT 2MCG/ML BUPIV 0.125% EPI 200 MCG/100 ML PLAST..BAG 6 MCG EPIDURAL (09:17)
--- NOTE | 2024-01-01 12:10 | PM.OBPNLAB ---
Date/Time Date Patient Seen: 01/01/24 Time Patient Seen: 11:55 Pain Control Pain control: epidural Comments: Sitting up in bed in high bustos's position complaining of low back pain at epidural site. Pitocin reached a max dose of 4mu/,in at 6am and then was decreased and turned off at 0630 for FHR tracing with minimal variability and occasional late decelerations. CE at 0730 with minimal change from 0600 at 6/80/-1. Pitocin was restarted and is now at 2mu/min since 11am. Pelvic Exam Dilation (cm): 6 Effacement (%): 90 station: -1 Amniotic membrane status: Ruptured (AROM) Contractions Monitor mode: External Pitocin rate (mU/min): 2 Contraction frequency (min): 4 Contraction duration (min): 2 Contraction pattern: Regular Contraction intensity: Moderate Intrauterine tone measurement: 90 Status status: Category ll Heart Rate Baseline: 140 Monitor Accelerations: Present Monitor Decelerations: Early and Variable Monitor Variability: Moderate (with periods of minimal) Assessment and Plan Assessment: active labor and induction ongoing Comments: IUPC placed and IV Benadryl given for edema. Initial MVUs 90. Will continue pitocin titration to adequate contractions. Notified OC OB of possible need for for active phase arrest. Will reassess in 1-2 hours.
[2024-01-01] MEDS: diphenhydrAMINE 50 MG/ML VIAL 25 MG IV ×2 (12:16→12:20)
--- NOTE | 2024-01-01 13:23 | PM.OBPNLAB ---
Date/Time Date Patient Seen: 01/01/24 Time Patient Seen: 13:24 Pain Control Pain control: epidural Pelvic Exam Dilation (cm): 6 Effacement (%): 90 station: -1 Amniotic membrane status: Ruptured (AROM) Comments: OP presentation Contractions Monitor mode: External Contraction frequency (min): 4 Contraction pattern: Regular Contraction intensity: Moderate Intrauterine tone measurement: 90 Status status: Category ll Heart Rate Baseline: 135 Monitor Accelerations: Absent Monitor Decelerations: Early (recurrent) and Late (ocasional) Monitor Variability: Minimal (with periods of moderate) Assessment and Plan Assessment: other (Arrest of active phase labor) Plan: Comments: Notified RN, OB Back-up and Anesthesia provider. Estimated time to OR 1445 d/t availability.
--- NOTE | 2024-01-01 14:24 | SUR.OPER ---
Supine on Padded OR bed, head on pillow, safety belt at thigh, arms secured on padded arm boards at <90 degrees abduction. Bump under right buttock. Legs uncrossed with pillow under knees, gel pad to heels, tape over blanket to lower legs.
--- NOTE | 2024-01-01 14:52 | PM.PREOP ---
Pre-operative Note Interval Note History & Physical reviewed/Exam performed by Physician: Yes Changes to H&P: No H&P completed within 30 days and has changed as indicated here:: 12/31/23
[2024-01-01] MEDS: AZITHROMYCIN 500 MG in DEXTROSE 5% IN WATER 250 ML 250 MG IV (14:54)
[2024-01-01] MEDS: CEFAZOLIN 2 GM/100 ML PREMIX 100 ML IV (14:54)
[2024-01-01] MEDS: TRANEXAMIC ACID 1,000 MG in SODIUM CHLORIDE 0.9% 100 ML 200 MG IV (15:27)
--- NOTE | 2024-01-01 16:17 | PM.OBCS.1 ---
Operative Date/Time/Diagnoses Date of procedure: 01/22/24 Pre-op diagnosis: arrest of descent, arrest of dilation Post-op diagnosis: same Procedure & Clinicians Procedure: Primary Same procedure as scheduled: Yes Indications: arrest of descent, arrest of dilation Surgeon: Rica Henry Click Yes if Unassisted: No English As A Second Language Instructor: Litzy Lay Reason for English As A Second Language Instructor: A skilled surgical scrub technician was necessary for safe delivery of for the purpose of retracting and visualization. Anesthesia Type: General Operative Notes Findings: viabe male infant in direct OP, poorly engaged in pelvis Closure Type: primary Specimen(s): cord blood and cord pH Intraoperative meds administered: Methergine, Pitocin and Tranexamic acid Applied: Catheter Estimated Blood Loss (mL): 500 Blood products transfused: none Procedure in detail: DATE OF SURGERY: 01/01/24 PREOP DIAGNOSES: Intrauterine at 41w1d Arrest of descent Arrest of dilation Oligohydramnios POSTOPERATIVE DIAGNOSES: Same s/p primary LTCS PROCEDURE: Primary LTCS Primary Surgeon: Rica Henry MD [employer] LAW ATTORNEY: Litzy Lay CNM ANESTHESIA: General Anesthesia Blood loss: 500cc EBL FINDINGS: poorly engaged infant in direct occiput posterior position SPECIMENS/PATH: cord blood, cord gases INDICATION:? 18 yo at 41w1d who was admitted for mIOL for oligohydramnios dx at postdates testing. She had an otherwise uncomplicated course leading up to this dx. She was admitted and sun balloon was inserted for induction. She was then started on oral misoprostol before transitioning to Pitocin for augmentation at 5cm dilation. AROM was performed with thin mec. She reached 6cm of cervical dilation at 06:03 am. 7 hours later she was unchanged so dx of arrest of dilation was made and decision was moved to CS. FHR showed a few periods of minimal variability and occasional late decelerations during this time period. OPERATIVE COURSE:? The patient was taken to the operating room with IV running. Epidural anesthesia was tested and found to be inadequate. The decision was made to convert to general anesthesia. She was prepared and draped in the normal sterile fashion in the dorsal supine position with a leftward tilt. General anesthesia was initiated with LMP placement per anesthesia. A Pfannenstiel skin incision was then made with the scalpel and carried through to the underlying layer of fascia with the scalpel. The fascia was incised in the midline. Subcutaneous tissue layer was bluntly dissected medial to lateral.??The fascial incision was extended bluntly by pulling cephalocaudal. Rectus muscles were bluntly. Peritoneum was opened bluntly. The bladder blade was then inserted.? Attention was turned to creating a bladder flap. The vesicouterine peritoneum was identified, grasped with pick-ups and entered sharply with the Metzenbaum scissors. The incision was then extended laterally and the bladder flap created digitally. A low transverse incision was made on the uterus with the scalpel. The uterine incision was then bluntly extended laterally by pulling cephalocaudal. Membranes were ruptured and fluid was meconium stained The bladder blade was removed. Infant was noted to be cephalic. Head was flexed out of direct OA position and delivered atraumatically. The nose and mouth were suctioned with bulb suction and the cord was clamped and cut.? The nose and mouth were suctioned with bulb suction and the cord was clamped and cut after approximately 30 seconds due to poor respiratory effort. The infant was handed off to the waiting delivery team. APGARS were 7 and 9 at one and five minutes respectively, with 1 minute count off for color and respiratory effort. The placenta was then delivered. The uterus was then cleared of all clots and debris. The uterine incision was repaired with 0 chromic in a running, locked fashion. A second layer of the same suture was used to imbricate. The fascia was reapproximated with 0 Vicryl in a running fashion.The subcutaneous tissue was reapproximated with 3-0 vicryl. The skin was closed with 4-0 monocryl. Steristrips were placed and covered by an Aquasil dressing. ?? The patient tolerated the procedure well.The patient was taken to the recovery room in stable condition.? SPONGE AND NEEDLE COUNTS: Correct DRESSING: Aquasil ANTICOAGULATION: SCD's applied prior to Surgery - YES PREOP ANTIBIOTICS GIVEN: Ampicillin and azithromycin BABY INFO: Cord gases sent: yes DISPOSITION: The patient was taken to recovery room having tolerated procedure well. Post-operative Condition: stable Disposition: PACU Aftercare: routine postop
--- NOTE | 2024-01-01 16:30 | P.PCN_ITS ---
Procedures Date/Time Date of procedure: 01/01/24 Time of procedure: 16:00 General Procedure description: High [employer] Forming Equipment Operator Documentation I assisted the OB bss solution architect in the section for this patient. My responsibilities included retracting and suctioning, providing fundal pressure during delivery and following with suture during closure. Please see the OB's note for details of the surgery.
[2024-01-01] MEDS: OXYCODONE IR 5 MG TABLET PO (18:54)
[2024-01-01] MEDS: ACETAMINOPHEN 325 MG TABLET 650 MG PO (18:58)
[2024-01-01] MEDS: MORPHINE 2 MG/ML INJ IV (19:13)
[2024-01-01] MEDS: KETOROLAC 30 MG/ML VIAL IV (22:39)
[2024-01-02] MEDS: OXYCODONE IR 5 MG TABLET PO ×5 (01:09→20:53)
[2024-01-02] MEDS: MORPHINE 2 MG/ML INJ IV ×2 (03:31→08:27)
[2024-01-02] MEDS: KETOROLAC 30 MG/ML VIAL IV ×2 (05:49→11:47)
[2024-01-02 06:16] LABS: Add Manual Diff / Slide Review NO; Basophils Absolute Auto 100 /uL (0-100); Basophils Percent Auto 0.8 % (0-2); Eosinophils Absolute Auto 0 /uL (0-450); Eosinophils Percent Auto 0.1 % (2-4); Hematocrit 27.6 % (36-46); Hemoglobin 8.8 g/dL (12.0-16.0); Lymphocytes Absolute Auto 2300 /uL (1100-4500); Lymphocytes Percent Auto 13.2 % (25-40); Mean Corpuscular HGB Conc 31.8 % (30-36); Mean Corpuscular Volume 69.1 fL (80-100); Monocytes Absolute Auto 800 /uL (0-900); Monocytes Percent Auto 4.9 % (3-14); Neutrophils Absolute Auto 14100 /uL (1500-7000); Platelet Count 342 X10^3/uL (150-400); Red Blood Cell Count 3.99 X10^6/uL (4.0-5.2); Red Cell Distribution Width 20.5 % (11.6-14.8); White Blood Cell Count 17.3 X10^3/uL (4.5-11.0)
[2024-01-02 06:54] LABS: Anisocytosis 1+; Microcytosis 1+; Platelet Estimate Adequate on smear
[2024-01-02] MEDS: PRENATAL VIT,CALC/IRON/FOLIC 1 TABLET 1 TAB PO (08:28)
[2024-01-02] MEDS: DOCUSATE 100 MG CAPSULE PO (08:28)
[2024-01-02] MEDS: ACETAMINOPHEN 325 MG TABLET 650 MG PO ×2 (11:48→18:38)
[2024-01-02] MEDS: IBUPROFEN 600 MG TABLET PO (18:38)
[2024-01-03] MEDS: ACETAMINOPHEN 325 MG TABLET 650 MG PO ×3 (00:08→14:47)
[2024-01-03] MEDS: IBUPROFEN 600 MG TABLET PO ×3 (00:09→14:47)
[2024-01-03] MEDS: OXYCODONE IR 5 MG TABLET PO ×3 (04:54→14:47)
--- NOTE | 2024-01-03 06:52 | DI.US.S_ITS ---
PROCEDURE: US PERIPH VENOUS LOW EXTREM LT INDICATIONS: CALF PAIN AND POSITIVE RADHA'S TEST TECHNIQUE: Real-time imaging, as well as color and pulse Doppler interrogation, were performed of the lower extremity deep veins from the inguinal ligament to the popliteal fossa, with documentation of the visualized calf veins. COMPARISON: None. FINDINGS: The common femoral, femoral, popliteal, and the visualized calf veins are normally compressible, and free of intraluminal thrombus. Color and pulse Doppler demonstrate normal phasic intraluminal flow. There is normal augmentation response to distal compression maneuver. IMPRESSION: No findings of left lower extremity deep venous thrombosis. Dictated by: Rosalind Burk M.D. on 01/03/2024 at 8:17 Approved by: Rosalind Bruk M.D. on 01/03/2024 at 8:18
[2024-01-03] MEDS: PRENATAL VIT,CALC/IRON/FOLIC 1 TABLET 1 TAB PO (09:48)
[2024-01-03] MEDS: DOCUSATE 100 MG CAPSULE PO (09:48)
--- NOTE | 2024-01-03 16:57 | PM.OBPN.1 ---
Subjective - OB Subjective Patient comments: pain well controlled, tolerating diet and flatus present baby status: doing well and nursing well [place] feeding status: exclusively breast feeding Date Patient Seen: 01/02/24 Time Patient Seen: 19:15 Interval history: Postop day #1 status post primary section for stage I arrest of labor and intolerance of labor. She is doing well. going well. Pain well controlled. She has voided without the catheter. She is ambulating. Bleeding is tapering. Exam Vital Signs (past 8 hours): Oxygen Delivery Method Room Air Narrative Exam Narrative: Generally: Patient is sitting up in bed, feeding infant, no acute distress Lungs: Clear to auscultation bilaterally Cardiovascular: Regular rate and rhythm Fundus: Firm at U -1 Incision: Clean dry and intact with Aquacel dressing Extremities: 1+ edema, negative Homans. No redness in the area. Objective Labs 01/02/24 06:00 Assessment & Plan Plan day: 1 plan OB: routine postop care Comments: Probable discharge January 03, 2024 Time Spent With Patient Time: Total time spent is greater than 50% in coordination of care (as documented) at patient's floor/unit and/or counseling patient: Time with patient: 15-24 minutes
--- NOTE | 2024-01-04 13:27 | PM.OBPN.1 ---
Subjective - OB Subjective Patient comments: no complaints, pain well controlled, tolerating diet and flatus present baby status: doing well and nursing well [place] feeding status: exclusively breast feeding Date Patient Seen: 01/02/24 Time Patient Seen: 18:30 Interval history: Patient is a 18-year-old 1 para 1 postop day # 1 status post primary low-transverse section for intolerance of labor. She has tolerating a diet. She has ambulated without assistance. She has voided without the catheter. No nausea or vomiting. going well. Exam Vital Signs (past 8 hours): Oxygen Delivery Method Room Air Narrative Exam Narrative: Generally: Patient lying in bed, holding infant, no acute distress Lungs: Clear to auscultation bilaterally Cardiovascular: Regular rate and rhythm Fundus: Firm at U/-1 Extremities: 1+ edema, negative Homans Objective Labs 01/02/24 06:00 Assessment & Plan Plan day: 1 plan OB: routine postop care Time Spent With Patient Time: Total time spent is greater than 50% in coordination of care (as documented) at patient's floor/unit and/or counseling patient: Time with patient: less than 15 minutes
--- NOTE | 2024-01-04 13:29 | PM.OBDS.1 ---
Discharge Providers Provider Date of admission: 12/31/23 19:52 Discharge Date: 01/03/24 Primary care physician: Sherman Adair, Consults: 01/01/24 18:40 Consult to [place] Routine Comment: Discharge provider: Viviane Soriano MD Summary Hospital Course Date Patient Seen: 01/03/24 Time Patient Seen: 07:50 Diagnoses: Forty-one weeks' gestation Oligohydramnios Cervical ripening Induction of labor Stage 1 arrest of labor Occiput posterior presentatin Primary low-transverse section Hospital Course: Patient is a 18-year-old 1 para 1 who presented on December 31, 2023 at 41 weeks' gestation for cervical ripening and an induction of labor. This was due to oligohydramnios. She was group B strep positive. Initially she had a category 2 tracing and was given a Fuentes catheter only. Oral misoprostol was then added when the strip became a category 1. She received an epidural for pain management. At 5:00 a.m. on January 01, 2024 she was 5 cm/90%/-2 station. The Fuentes catheter was removed and Pitocin was started. At 6:00 a.m. she progressed to 6 cm/90%/-2 station and artificial rupture membranes was performed. At 12 noon her cervix was unchanged. An intrauterine pressure catheter was placed. At 1:30 a.m. with adequate contractions she had no cervical change. A decision was made to proceed to a primary low-transverse section. She underwent this procedure without complication. The baby was found to be in the direct occiput posterior presentation and not engaged in the pelvis. Her postoperative course was unremarkable except for on day # 1 she complained of some left ankle pain. There was some redness and tenderness at the area. A duplex of the left lower extremity was performed and it was negative. She voided without the catheter. Pain was well controlled. She tolerated a diet. Was passing flatus. She ambulated without assistance. was going well. She is discharged home to follow-up in 1 week for an Aquacel dressing removal. Peripartum Data Delivery Method: Section Procedures: Group B strep prophylaxis Fuentes catheter placement for cervical ripening Oral misoprostol for cervical ripening Pitocin augmentation of labor Epidural analgesia Intrauterine pressure catheter placement Primary low-transverse section complications: none 1: Gender: Male Disposition of : home Status at Discharge Cognitive/behavioral status at discharge: oriented Functional status at discharge: independent ambulation Overall status at discharge: patient is progressing back to baseline Time Spent with Patient Time attestation: Total time spent providing and/or coordinating discharge services: Time spent: Less than 30 minutes Objective Labs 01/02/24 06:00 Exam Vital Signs (past 8 hours): Oxygen Delivery Method Room Air Narrative Exam Narrative: Generally: Patient is sitting up in bed, holding infant, no acute distress Lungs: Clear to auscultation bilaterally Cardiovascular: Regular rate and rhythm Fundus: Firm at U-1 Incision: Clean dry and intact with Aquacel dressing Extremities: 1+ edema, negative Homans Discharge Plan Discharge Plan Patient Disposition: Home Provider Discharge Comment: Call with fever, chills, redness or drainage around the incision, or bleeding vaginally more than a pad in an hour Ibuprofen 600 mg every 6 hours as needed Tylenol 650 mg every 6 hours as needed Continue vitamins Stool softener as needed Push oral fluids Discharge orders & Medications Prescriptions: New oxycodone 5 mg tablet 5 mg PO Q4H PRN (Reason: pain) Qty: 20 0RF docusate sodium [Colace] 100 mg capsule 100 mg PO BID Qty: 30 0RF Follow up/Referrals: Kate Leigh CNM [Advanced Activities Specialist] - (1 week post op 01/08/2024 at 4:30pm 2 week phone appointment 01/15/2024 at 12:45pm 6 week office visit 02/12/2024 at 1:30pm) Diet/Activity/Treatments Diet: Regular Activity: No heavy lifting Nothing in the vagina for 6 weeks Skin/Wound/Dressing Care Report to your healthcare provider any signs of infection, such as:: chills, fever, increased pain, unusual drainage and unusual redness Dressing: Dressing to be removed by hazardous waste technician at 1 week Visit Report/Discharge Packet Instructions: DI for , DI for Prescription Opioid Use Stand Alone Forms: Patient Portal/API, Stroke Signs & Symptoms Discharge Data Primary Care Provider: Sherman Adair
== END 2024-01-03 15:50 | disposition home or self-care (01) | DRG 540 ==
PROVIDERS: Family Medicine; Obstetrics & Gynecology; Admitting Provider Nurse Practitioner Obstetrics & Gynecology; PCP Family Medicine; Referring Provider Nurse Practitioner Obstetrics & Gynecology; Visit Provider Nurse Practitioner Obstetrics & Gynecology
PROC: (CPT 59514; principal; 2024-01-01 14:15)
DX: O41.03X0 Oligohydramnios, third trimester, not applicable or unspecified (principal); O76 Abnormality in fetal heart rate and rhythm complicating labor and delivery; O62.1 Secondary uterine inertia; Z3A.41 41 weeks gestation of pregnancy; Z37.0 Single live birth; O48.0 Post-term pregnancy; O99.824 Streptococcus B carrier state complicating childbirth
CPT/HCPCS: 36415; 59050; 59514; 85025; 86850; 86900; 86901; 93971; G0379; J0290; J0330; J0690; J1200; J1885; J2270; J2405; J2590; J2704; J3010

== ENCOUNTER 2024-10-23 11:46 | Emergency (ER) | payer OTHER, SELFPAY ==
[2024-10-23] VITALS (8 sets, daily range): BP systolic 99–128; BP diastolic 53–78; PULSE 87–101; RESP 18–22; TEMP 36.9; O2SAT 97–98; BMI 40.0
--- NOTE | 2024-10-23 12:00 | DI.RAD.S_ITS ---
PROCEDURE: XR CHEST 1V INDICATIONS: eval for PNA TECHNIQUE: One view of the chest was acquired. COMPARISON: None. FINDINGS: Surgical changes and devices: None. Lungs and pleura: Lungs are clear. No pleural effusions or pneumothorax. Mediastinum: Mediastinal contours appear normal. Heart size is normal. Bones and chest wall: No suspicious bony lesions. Overlying soft tissues appear unremarkable. IMPRESSION: No acute cardiopulmonary abnormality is seen. Dictated by: Tyler Post M.D. on 10/23/2024 at 12:33 Approved by: Tyler Post M.D. on 10/23/2024 at 12:35
--- NOTE | 2024-10-23 12:00 | ED_ITS ---
HPI - General Adult General Chief complaint: Shortness of Breath/Dyspnea Stated complaint: SOB, asthma Time Seen by Provider: 10/23/24 11:54 Source: patient Mode of arrival: Ambulatory Limitations: no limitations History of Present Illness HPI narrative: Patient was a 19-year-old female. Has a history of asthma. For the past week has had shortness of breath, and wheezing. States her symptoms are somewhat worse at night. She has been using her albuterol inhaler and nebulizer but continues to have symptoms. She does not necessarily feel like she was wheezing currently. No chest pain. No vomiting. Related Data Previous Rx's Medication Instructions Recorded docusate sodium 100 mg capsule 100 mg PO BID #30 caps 01/03/24 (Colace) oxycodone 5 mg tablet 5 mg PO Q4H PRN pain #20 tabs 01/03/24 albuterol sulfate 2.5 mg/0.5 mL 5 mg inhalation Q6H PRN shortness 10/23/24 solution for nebulization of breath or wheezing #30 ea albuterol sulfate 90 mcg/actuation 2 puff inhalation Q4-6H PRN 10/23/24 aerosol inhaler shortness of breath or wheezing #8.5 grams prednisone 20 mg tablet 20 mg PO DAILY 7 days #7 tabs 10/23/24 Allergies Allergy/AdvReac Type Severity Reaction Status Date / Time No Known Drug Allergies Allergy Verified 04/27/23 20:17 Review of Systems Review of Systems ROS Unobtainable: All systems reviewed & are unremarkable except as noted in HPI and below Patient History Social History Smoking Status: Never smoker Smoking Status: Never smoker alcohol intake frequency: 0-2 drinks per day Exam Initial Vital Signs Initial Vital Signs: Vital Signs Temperature 98.5 F 10/23/24 11:48 Pulse Rate 101 H 10/23/24 11:48 Respiratory Rate 22 10/23/24 11:48 Blood Pressure 116/73 10/23/24 11:48 Pulse Oximetry 98 10/23/24 11:48 Oxygen Delivery Method Room Air 10/23/24 11:48 Const General: cooperative, comfortable and No ill appearing Resp Effort & Inspection: cough, not labored, no retractions and tachypneic Auscultation: rhonchi and wheezes Cardio Rate: tachycardic Rhythm: regular rhythm Skin General: no rashes or lesions noted Extrem General: No edema Course Orders Ordered: ED Orders 10/23/24 11:55 Covid-19 + FLU A/B + RSV - PCR Stat 10/23/24 12:00 XR chest 1V Stat Discontinued Medications Albuterol/Ipratropium (Albuterol/Ipratropium 3 Ml Ampul) 3 ml INH NOW ONE Stop: 10/23/24 12:01 Last Admin: 10/23/24 12:15 Dose: 3 ml Documented By: NOEMÍ Prednisone (Prednisone 20 Mg Tablet) 20 mg PO NOW ONE Stop: 10/23/24 12:01 Last Admin: 10/23/24 12:11 Dose: 20 mg Documented By: NOEMÍ Vital Signs Vital signs: Vital Signs - 8 hr 10/23/24 11:48 10/23/24 11:57 10/23/24 11:58 Temperature 98.5 F Pulse Rate 101 H 93 H Respiratory Rate 22 Blood Pressure 116/73 126/78 Pulse Oximetry 98 98 Oxygen Delivery Method Room Air 10/23/24 11:58 10/23/24 12:00 10/23/24 12:00 Temperature Pulse Rate 98 H 100 H Respiratory Rate Blood Pressure 113/66 Pulse Oximetry 98 97 Oxygen Delivery Method 10/23/24 12:30 10/23/24 12:31 10/23/24 12:31 Temperature Pulse Rate 91 H 96 H Respiratory Rate 18 Blood Pressure 128/73 Pulse Oximetry 97 98 Oxygen Delivery Method 10/23/24 13:00 10/23/24 13:00 Temperature Pulse Rate 99 H Respiratory Rate 18 Blood Pressure 110/58 L Pulse Oximetry 98 Oxygen Delivery Method Medical Decision Making Lab Data Lab results reviewed: Yes I reviewed the patient's lab results. Labs: Lab Results 10/23/24 Range/Units 11:55 SARS-CoV-2 (PCR) Negative (Negative) Influenza A (RT-PCR) Flu a negative (NEGATIVE) Influenza B (RT-PCR) Flu b negative (NEGATIVE) RSV (PCR) Negative (Negative) Imaging Data Chest x-ray: Radiologist's Impression: PROCEDURE: XR CHEST 1V INDICATIONS: eval for PNA TECHNIQUE: One view of the chest was acquired. COMPARISON: None. FINDINGS: Surgical changes and devices: None. Lungs and pleura: Lungs are clear. No pleural effusions or pneumothorax. Mediastinum: Mediastinal contours appear normal. Heart size is normal. Bones and chest wall: No suspicious bony lesions. Overlying soft tissues appear unremarkable. IMPRESSION: No acute cardiopulmonary abnormality is seen. ECG Data Attestation: I personally reviewed and interpreted this ECG as follows: Interpretation: Sinus rhythm Ventricular rate is 78 Occasional PVC Artifact noted in lead V3. LVH Nonspecific ST T wave changes MDM Narrative Medical decision making narrative: Chest x-ray shows no signs of pneumonia. She states she does feel better after her albuterol treatment. She was given a dose of steroids here in the ER. I suspect that this is a viral illness causing a increase in her asthma. Will place her on steroids for the next couple days. No indication for antibiotics. Will refill her albuterol as well. She was given return precautions and follow- up instructions. She expressed understanding and agreement with the plan. Discharge Plan Departure Patient Disposition: Home Clinical Impression: Asthma with exacerbation, Upper respiratory infection Instructions: DI for Asthma -- Adult Activity Restrictions/Additional Instructions: Your next dose of steroids will be Saturday10/24/2024. I did refill your albuterol as well. Take all these medications as directed. Contact your primary doctor for a follow-up. Return to the emergency department for new symptoms. Prescriptions: New prednisone 20 mg tablet 20 mg PO DAILY 7 Days Qty: 7 0RF albuterol sulfate 90 mcg/actuation HFA aerosol inhaler 2 puff inhalation Q4-6H PRN (Reason: shortness of breath or wheezing) Qty: 8.5 2RF albuterol sulfate 2.5 mg/0.5 mL solution for nebulization 5 mg inhalation Q6H PRN (Reason: shortness of breath or wheezing) Qty: 30 2RF No Action oxycodone 5 mg tablet 5 mg PO Q4H PRN (Reason: pain) Qty: 20 0RF docusate sodium [Colace] 100 mg capsule 100 mg PO BID Qty: 30 0RF Referrals: Sherman Adair DO [Primary Care Provider] - Stand Alone Forms: Patient Portal/API/Survey
[2024-10-23] MEDS: predniSONE 20 MG TABLET PO (12:11)
[2024-10-23] MEDS: ALBUTEROL/IPRATROPIUM 3 ML AMPUL INH (12:15)
--- NOTE | 2024-10-23 12:24 | PC.NURSE ---
spacer training completed, patient given spacer for use with home albuterol inhaler she has here
[2024-10-23 12:46] LABS: Influenza A - CEPHEID Flu A NEGATIVE (NEGATIVE); Influenza B - CEPHEID Flu B NEGATIVE (NEGATIVE); Respiratory Syncytial Virus Negative (Negative)
[2024-10-23 12:47] LABS: COVID-19 CEPHEID 4-PLEX PCR Negative (Negative)
== END 2024-10-23 13:49 | disposition home or self-care (01) ==
PROVIDERS: Emergency Provider Emergency Medicine; PCP Family Medicine
DX: J45.901 Unspecified asthma with (acute) exacerbation (principal); J06.9 Acute upper respiratory infection, unspecified
CPT/HCPCS: 87635; 87400 ×2; 87420; 0241U; 71045; 99283

== ENCOUNTER → 2024-12-02 15:00 | Outpatient (CLI) | payer OTHER, SELFPAY | PROVIDERS: PCP Family Medicine; Visit Provider Registered Nurse | DX: R30.0 Dysuria (principal) | CPT/HCPCS: 81002; 87077; 87086; 87186; 87210 ==